=== PATIENT | male | born 1945 | race Caucasian/White ===

== ENCOUNTER 2017-02-14 06:09 | Inpatient (IN) ==
[2017-02-14] MEDS ORDERED: Heparin 1,000 UNITS/500 mL NS 2,000 ML ONE (06:33)
[2017-02-14] MEDS ORDERED: *HR* Propofol 200 MG/20 ML VIAL IVP ONE (06:37)
[2017-02-14] MEDS ORDERED: Lidocaine -MPF 4% 5 ML AMPUL ONE (06:42)
[2017-02-14] MEDS ORDERED: *HR* Succinylcholine 200 MG/10 ML VIAL IVP ONE (06:42)
[2017-02-14] MEDS ORDERED: *HR* Rocuronium Bromide 50 MG/5 ML VIAL ONE (06:42)
[2017-02-14] MEDS ORDERED: *HR* FentaNYL (PF) 100 MCG/2 ML VIAL ONE (06:43)
[2017-02-14] MEDS ORDERED: *HR* Phenylephrine 10 MG/ML VIAL ONE ×3 (06:44→15:26)
[2017-02-14] MEDS ORDERED: Lidocaine -MPF 1% 2 ML VIAL ID ONE (06:45)
[2017-02-14] MEDS ORDERED: Albuterol 2.5 MG/3 ML NEBULIZER IH ONE (06:45)
[2017-02-14] MEDS ORDERED: Ringers Solution, Lactated 1,000 ML IVC SCH ×2 (06:45→19:00)
[2017-02-14] MEDS ORDERED: CeFAZolin Pre 2,000 MG/100 ML 2,000 MG/100 ML BAG IVPB ONE (06:45)
[2017-02-14] MEDS ORDERED: Water for inj. (sterile) 10 ML IV ONE (06:46)
[2017-02-14] MEDS ORDERED: *HR* Heparin 5,000 UNIT/ML VIAL ONE (06:46)
[2017-02-14] MEDS ORDERED: Albuterol 2.5 MG/3 ML NEBULIZER ONE (06:47)
--- NOTE | 2017-02-14 07:18 | Anesthesia Evaluation PreOp ---
Date of Encounter: 02/14/17 Time of Encounter: 07:15 - Past History Planned Operation: Left Popliteal Angioplasty, Possible Fem- Pop Bypass Cardiac History: MO (2012), Angina (Stable), HTN, Hyperlipidemia, Cardiac Surgery (CABG X 2 2012), Cardiac Stent (2012), Other (AAA Endo graft repair, then Aneurysectomy ) Pulmonary History: Smoker, COPD (Home oxygen at night) PROJECT ARCHITECT History: Denies Any Significant HX Other Medical History: Renal (CKD Stage 3), Diabetes Type II Anesthesia History: No Prior Anesthetic Complications Alcohol Use: none Drug use: none Medications and Allergies Albuterol Sulfate [Albuterol Inhaler] 2 puff IH Q4HR PRN 06/23/15 [History] Aspirin 81 mg PO DAILY 06/23/15 [History] Prasugrel [Effient] 10 mg PO DAILY 06/23/15 [History] Cholecalciferol (D-3) [Vitamin D] 2,000 unit PO DAILY 11/01/16 [History] Furosemide [Lasix] 40 mg PO DAILY 11/01/16 [History] Gabapentin [Neurontin] 800 mg PO QID 11/01/16 [History] GlipiZIDE XL (24 HR) [Glucotrol XL] 2.5 mg PO BID 11/01/16 [History] Isosorbide MONOnitrate [Isosorbide Mononitrate ER] 120 mg PO DAILY 11/01/16 [ History] Metoprolol XL (24 HR) Succ [Toprol Xl] 50 mg PO HS 11/01/16 [History] Nitroglycerin [Nitrolingual] 1 spr TL AD PRN 11/01/16 [History] Valsartan [Diovan] 160 mg PO DAILY 11/01/16 [History] Acetaminophen [Tylenol] 1,000 mg PO Q6HR PRN 02/14/17 [History] Amitriptyline [Elavil] 25 mg PO HS 02/14/17 [History] Calcium Polycarbophil [Fibercon] 625 mg PO QID 02/14/17 [History] Hydrocortisone 1% CREAM [Cortaid] 1 appl TP BID PRN 02/14/17 [History] Hydroxyzine HCl 25 mg PO TID PRN 02/14/17 [History] Mineral Oil/Hydrophil Petrolat [Aquaphor Ointment] 1 appl TP BID 02/14/17 [ History] Na Phos,M-B/Na Phos,Di-Ba [Fleet Enema Extra] 230 ml RC PRN PRN 02/14/17 [ History] Oxycodone HCl/Acetaminophen [Percocet 5-325 mg Tablet] 1 tab PO Q6H PRN [History] Allergies clopidogrel [From Plavix] Allergy (Mild, Verified 11/01/16 12:37) Rash Eykzvaf-Qzx-Oeg Reductase Inhibitor [Statins] Allergy (Mild, Verified 11/01/16 12:37) Hives zinc Allergy (Mild, Verified 11/01/16 12:37) Hives - Meds/Allergy Pre-op Review Medications Reviewed: Yes Allergies Reviewed: Yes Beta Blockers on Current Med List: Yes (Took Metoprolol last night 2300) Anesthesia Results - Labs Laboratory Tests 02/08/17 02/08/17 02/08/17 10:39 10:39 10:39 Hgb 15.3 Hct 45.6 Plt Count 147 PT 11.3 INR 1.0 APTT 31.5 Sodium 136 Potassium 4.5 BUN 22 Creatinine 1.45 H - Imaging EKG: report reviewed (SR First Degree AV Block) Anesthesia Exam O2 Sat Height 1.78 m Height 1.78 m Height 1.78 m Weight 97.976 kg Weight 97.976 kg Weight 97.976 kg O2 Sat by Pulse Oximetry 98 O2 Sat by Pulse Oximetry 98 Vital Signs Temp Pulse Resp BP Pulse Ox 98.4 F 75 18 121/68 98 02/14/17 06:29 02/14/17 06:29 02/14/17 06:29 02/14/17 06:29 02/14/17 06:29 Height: 5'10 Weight: 216 lbs NPO (# of Hours): MN Pain Scale: 0 - HEENT Pupil (Motor): Pupils equal, EOMI Mallampati: II Teeth: Normal Oral Opening: Greater than 3 - PROJECT ARCHITECT LOC: Oriented PROJECT ARCHITECT Motor: Normal RUE, Normal LUE, Normal RLE, Normal LLE, Normal Face PROJECT ARCHITECT Sensory: Normal: RUE, LUE, RLE, LLE, Face - Cardiac Rhythm: Regular Murmur: None JVD: No Carotid Bruit: No - Pulmonary Breath Sounds: bilateral Clear Respiratory Effort: Symmetrical Anesthesia Assess/Plan ASA Score: 3 (CAD COPD PVD DM) Modified Sylvia Scale for Level of Consciousness: Cooperative, oriented, and tranquil Anesthetic Plan: General Monitoring Plan: Standard Monitors, A-Line Recovery Plan: PACU (Discussed GA, possible A-line, agrees to proceed)
--- NOTE | 2017-02-14 07:30 | History & Physical Report ---
Date of Encounter: 02/14/17 Time of Encounter: 07:15 24 Hour HP Update - Instructions Instructions: If the History and Physical is less than 30 days old and was completed prior to A.M. admission and or procedure and has NOT been updated on calendar day of procedure please complete this update prior to performing procedure. - Update Patient reports changes in Medical Condition: No Changes in assessment/condition: No Changes in Medication: No Preop tests/diagnostics Reviewed: Yes Surgery Remains Indicated: Yes Consent for Planned Operative Procedure(s) Verified: Yes - Pre-Operative Checklist Preoperative Checklist Indicated: Yes Prophylactic Antibiotic Ordered: Yes Home Medications Include Beta Cheryl: Yes Beta Cheryl Taken Today (Day of Surgery): Yes Beta Cheryl Taken Yesterday (Day Prior to Surgery): Yes Is VTE Prophylaxis Indicated?: Yes
[2017-02-14] MEDS ORDERED: *HR* Midazolam HCl 2 MG/2 ML VIAL ONE (07:47)
[2017-02-14] MEDS ORDERED: Ketamine *HR* 500 MG/10 ML MDV ONE (08:46)
[2017-02-14] MEDS ORDERED: EPHEDrine 50 MG/ML VIAL ONE ×2 (08:51→09:54)
[2017-02-14] MEDS ORDERED: *HR* Magnesium Sulfate 1 GM/2 ML VIAL ONE (08:52)
[2017-02-14] MEDS ORDERED: Ondansetron 4 MG/2 ML VIAL ONE (10:07)
[2017-02-14] MEDS ORDERED: Acetaminophen IV 1,000 MG/100 ML INFUS..BTL ONE (11:38)
[2017-02-14] MEDS ORDERED: Heparin 1,000 UNITS/500 mL NS 500 ML ONE (12:16)
[2017-02-14] MEDS ORDERED: *HR* Promethazine 25 MG/ML VIAL IVP PRN (14:26)
[2017-02-14] MEDS ORDERED: *HR* HYDROmorphone (PF) 1 MG/ML SYRINGE IVP PRN (14:26)
[2017-02-14] MEDS ORDERED: *HR* Labetalol 100 MG/20 ML MDV IVP PRN (14:26)
[2017-02-14] MEDS ORDERED: *HR* HYDROmorphone 2 MG/ML SYRINGE ONE (14:50)
--- NOTE | 2017-02-14 14:56 | Operative Note ---
Date of procedure: 02/14/17 Pre-op diagnosis: PAD/leg pain Post-op diagnosis: same Procedure: left leg angiogram via antegrade approach and open femoral exposure left SFA balloon angioplasty with 5 and 6 mm balloons with radiologic interpretation and supervision left TibioPeroneal trunk and selective tibial endarterectomy of the proximal peroneal and posterior tibial arteries left common femoral to tibioperoneal bypass with 6 mm PTFE distaflo graft Complications: none Anesthesia: GETA Surgeon: Bertrand Miller Estimated blood loss (cc): 600 Urine output (cc): 900 Specimen: none Condition: stable Disposition: PACU Procedure in Detail: History Derrick Grvaes is a 71-year-old white male with a very long and complicated medical history. I performed an endovascular repair of an abdominal aortic aneurysm in 2014. As part of his follow-up the patient had noted significant bilateral lower extremity pain. A CT angiogram was obtained in the fall of 2015 with intention to treat in the operating room. The CT scan however revealed a new diagnosis of bladder cancer and the patient was referred to urology for treatment. He was then referred back to vascular surgery for intervention and he now comes for that procedure for the left lower extremity. Due to the presence of the endovascular stent graft he was not a candidate for a percutaneous contralateral approach as would standardly be done in this circumstance. Past history also includes coronary artery disease and open heart bypass grafting and stent angioplasty and diabetes and hyperlipidemia and COPD. Procedure After informed consent was obtained the patient was taken to the operating room. General endotracheal anesthesia was established and an arterial line was placed. The left neck and abdomen and right groin were sterilely prepped and draped. A timeout protocol was observed. The left groin was then explored and opened via the original left groin incision from his endovascular stent graft repair. Dissection to the femoral area revealed a calcific left common femoral artery with a soft superficial femoral artery. Controls obtained of the femoral vessels. An 18-gauge needle was then used to puncture the anterior surface of the common femoral artery in an area of soft tissue. This was followed by a wire and a 6 Tamazight sheath and dilator. The dilator was removed and the sheath was aspirated and flushed. An angiogram was then performed of the left lower extremity. Contrast was injected via the sheath of the left lower extremity. This demonstrated the area of stenosis in the distal left thigh by his previous CT angiogram had now become thrombosed. There was an isolated area of the above- knee popliteal that reconstituted and then the Armin and below the knee popliteal artery were occluded. I decision at that point was made to proceed with endovascular intervention. 5000 units of heparin were administered intravenously. After an appropriate delay the guidewire was inserted through the left superficial femoral artery obstruction in the area of chronic total occlusion. With this done a 5 and 6 mm diameter balloon was inserted into this area and inflated. Completion angiograms demonstrated a successful result with resolution of all of the left superficial femoral artery HAND BUFFING WHEEL FORMER. Attention was then directed to the left popliteal artery HAND BUFFING WHEEL FORMER here multiple attempts of placing a wire through this occlusion were unsuccessful. Therefore further endovascular attempts were aborted and the patient would thus need direct open reconstruction to relieve this occlusive lesion. By CT angiogram the patient was also identified as having significant distal disease. The left above-knee popliteal artery was then exposed through a medial incision. Dissection was carried down to the neurovascular bundle. The gastrocnemius muscle appeared edematous. The artery was in a abnormally lateral location which made the exposure and dissection and surgery in this vessel extremely difficult and tedious. In addition there were a number of crossing veins that needed to be divided. Evaluation of the artery revealed a dense and thick plaque that extended from the below the knee popliteal artery into the tibial peroneal trunk and into the proximal tibial vessels. After selective control was obtained of the tibial vessels and the popliteal and arteriotomy was made over the tibial peroneal trunk. This vessel was occluded and therefore an endarterectomy was necessary. A formal endarterectomy was performed of the left tibial peroneal trunk. This was performed using standard techniques. Dissection was carried into the proximal aspect of the posterior tibial and peroneal arteries. Dense and calcified plaque were removed from these vessels and retrograde bleeding was achieved. With this done a subsartorial tunnel was created from knee area to the groin. A 6 mm PTFE Distaflo graft was selected. This graft was then anastomosed to the area of the endarterectomized tibial peroneal trunk. After the distal anastomosis was completed except for leaving a small space open for flushing attention was directed to the proximal area. An arteriotomy was then made in the left common femoral artery with extension onto the proximal aspect of the superficial femoral artery. The plaque was posteriorly and did not require endarterectomy. The synthetic graft was then cut to size and an endograft to side of artery anastomosis was performed using 6 -0 Prolene. After appropriate backbleeding and flushing the proximal anastomosis was opened. Then attention was directed distally and the graft was allowed to flush through the open area and then the final few sutures placed and pulsatile flow was then restored into the tibial circulation. The patient had significant oozing thought secondary to his use of antiplatelet agents surrounding the time of surgery which could not effectively be stopped due to his ongoing coronary artery disease. After a long and tedious effort hemostasis was achieved at both areas of anastomoses due to the bruising from the needle puncture sites. A number of topical agents were used to assist in control of this oozing. With this done the wounds were irrigated with antibiotic containing solution. The wounds were closed in layers using absorbable suture. Dry sterile dressings were applied. Doppler signals were identified over the anterior tibial and posterior tibial arteries at the ankle. The patient was then taken from the operating room to the recovery room in stable condition. He was extubated. Aspirin blood loss was 600 mL. The sponge count and needle counts were correct.
[2017-02-14] MEDS ORDERED: hydrOXYzine pamoate 25 MG CAPSULE PO PRN (17:37)
[2017-02-14] MEDS ORDERED: ceFAZolin 2,000 MG in D5% in Water 100 ML IVPB SCH (17:37)
[2017-02-14] MEDS ORDERED: NA PHOS M B RC PRN (17:37)
[2017-02-14] MEDS ORDERED: Nitroglycerin Spray 4.9 GM BOTTLE TL PRN (17:37)
[2017-02-14] MEDS ORDERED: Ondansetron 4 MG/2 ML VIAL IVP PRN (17:37)
[2017-02-14] MEDS ORDERED: *HR* OxyCODONE/APAP 5/325 TABLET PO PRN (17:37)
[2017-02-14] MEDS ORDERED: *HR* Morphine 2 MG/ML SYRINGE IVP PRN ×2 (17:37)
[2017-02-14] MEDS ORDERED: NA PHOS DI BA RC PRN (17:37)
[2017-02-14] MEDS ORDERED: Naloxone 0.4 MG/ML INJ IVP PRN (17:37)
[2017-02-14] MEDS ORDERED: 0.9 % Sodium Chloride 500 ML ONE (17:54)
[2017-02-14] MEDS ORDERED: 0.9 % Sodium Chloride 250 ML IVC ONE ×2 (17:57→18:15)
[2017-02-14 18:10] LABS: Hematocrit 29.8 % (37.5-50.1)
[2017-02-14] MEDS: Gabapentin 400 MG CAPSULE PO SCH ×2 (19:05→20:17)
[2017-02-14] MEDS: Metoprolol XL (24 HR) Succ 50 MG TAB.ER.24H PO SCH (20:17)
[2017-02-14] MEDS: MINERAL OIL TP SCH (20:18)
[2017-02-14] MEDS: HYDROPHIL PETROLAT TP SCH (20:18)
[2017-02-14] MEDS: *HR* GlipiZIDE XL (24 HR) 2.5 MG TABLET PO SCH (21:04)
[2017-02-15] MEDS: ceFAZolin 2,000 MG in D5% in Water 100 ML IVPB SCH ×2 (03:15→08:58)
[2017-02-15 04:57] LABS: Basophils # 0.1 K/mcL (0.0-0.2); Basophils % 0.5 %; Eosinophils # 0.3 K/mcL (0.0-0.6); Eosinophils % 2.8 %; Hematocrit 28.6 % (37.5-50.1); Hemoglobin 9.5 g/dL (12.9-16.9); Immature Granulocytes % 0.3 % (0-4); Lymphocytes # 1.2 K/mcL (0.6-4.6); Lymphocytes % 12.1 %; Mean Corpuscular HGB Conc 33.2 g/dL (31.6-35.5); Mean Corpuscular Hemoglobin 32.2 pg (28.0-33.3); Mean Corpuscular Volume 96.9 fL (83.0-100.0); Mean Platelet Volume 10.9 fL (9.4-12.4); Monocytes # 0.9 K/mcL (0.0-1.3); Monocytes % 9.1 %; Neutrophils # 7.6 K/mcL (1.6-8.9); Red Blood Count 2.95 M/mcL (4.19-5.50); Red Cell Distribution Width 13.3 % (11.5-14.5); Segmented Neutrophils % 75.2 %
[2017-02-15 04:58] LABS: Platelet Count 93 K/mcL (140-400)
[2017-02-15 05:07] LABS: BUN/Creatinine Ratio 16 (6-26); Blood Urea Nitrogen 21 mg/dL (8-26); Carbon Dioxide 25 mEq/L (19-29); Chloride 106 mEq/L (98-109); Glucose 138 mg/dL (70-99); Osmolality,Calculated 283 (280-300); Potassium 4.9 mEq/L (3.5-4.5); Sodium 134 mEq/L (136-145); eGFR For African Americans > 60 (> 60); eGFR For Non-African Americans 54 (> 60)
[2017-02-15 05:41] LABS: Platelet Estimate Decreased (Normal)
[2017-02-15] MEDS: Gabapentin 400 MG CAPSULE PO SCH ×4 (08:52→19:55)
[2017-02-15] MEDS: *HR* GlipiZIDE XL (24 HR) 2.5 MG TABLET PO SCH ×2 (08:52→19:56)
[2017-02-15] MEDS: HYDROPHIL PETROLAT TP SCH ×2 (08:53→19:53)
[2017-02-15] MEDS: MINERAL OIL TP SCH ×2 (08:53→19:53)
[2017-02-15] MEDS ORDERED: Isosorbide MONOnitrate (24 HR) 60 MG TAB.ER.24H PO SCH (09:00)
[2017-02-15] MEDS ORDERED: Cholecalciferol (D-3) 1,000 UNIT TABLET PO SCH (09:00)
[2017-02-15] MEDS ORDERED: Aspirin 81 MG TAB.CHEW PO SCH (09:00)
[2017-02-15] MEDS ORDERED: Furosemide 40 MG TABLET PO SCH (09:00)
[2017-02-15] MEDS ORDERED: Valsartan 160 MG TABLET PO SCH (09:00)
--- NOTE | 2017-02-15 17:05 | Vascular/[facility] Progress Note ---
Date of Encounter: 02/14/17 Time of Encounter: 17:02 - Assessment and plan (1) PAD (peripheral artery disease) Current Visit: Yes Status: Chronic Patient is postoperative day #1 from an extensive left lower extremity reconstruction with angiogram and SFA angioplasty and endarterectomy and femoral to tibioperoneal trunk bypass graft with synthetic. The bypass graft remains patent with excellent perfusion of the left foot. The patient has edema of the left calf and foot which is expected after reconstruction and the need for division of some of the veins for arterial exposure. The patient has walked some in the hallways but he still has some difficulties. He was seen by physical therapy in consultation today. He also has had episodes of borderline low O2 saturation despite nasal cannula O2 supplementation. - Subjective Interval history: Complains of pain and stiffness of left lower extremity with ambulation Vital Signs, Last 4 Hours Temp Pulse Resp BP Pulse Ox 02/15/17 16:00 98.2 F 74 16 111/48 93 L 02/15/17 14:00 68 14 95/54 97 - Physical Examination General: Present: Conversant, No Apparent Distress HEENT: Present: Atraumatic Neck: Absent: JVD Cardiac: Present: Reg Rate and Rhythm, Normal S1 and S2 Lungs: Present: Decreased breath sounds Neuro: Present: Alert and responsive, No focal deficits noted Vascular: Present: Normal capillary refill, Color/Temperature (Left foot is warm and pink. The patient has Doppler signals 3.) - VTE Documentation of Mechanical Device: Intermittent pneumatic compression device Results 02/15/17 04:07 02/15/17 04:07 Lab Results, Last 24 hours 02/14/17 02/15/17 02/15/17 18:00 04:07 04:07 WBC 10.1 Hgb 10.0 L D 9.5 L Hct 29.8 L 28.6 L Plt Count 93 L Sodium 134 L Potassium 4.9 H Chloride 106 Carbon Dioxide 25 BUN 21 Creatinine 1.31 H Glucose 138 H Calcium 8.0 L Consult Discharge Plan - Plan Referrals: Lisha Crenshaw RISK MANAGEMENT INTERN [Primary Care Provider] -
[2017-02-15] MEDS: Metoprolol XL (24 HR) Succ 50 MG TAB.ER.24H PO SCH (19:56)
[2017-02-15] MEDS ORDERED: Ondansetron 4 MG/2 ML VIAL IVP PRN (21:03)
[2017-02-15] MEDS ORDERED: *HR* OxyCODONE/APAP 5/325 TABLET PO PRN (21:03)
[2017-02-15] MEDS ORDERED: [UNRECOGNIZED DRUG - OTHER] RC PRN (21:03)
[2017-02-15] MEDS ORDERED: hydrOXYzine pamoate 25 MG CAPSULE PO PRN (21:03)
[2017-02-15] MEDS ORDERED: Naloxone 0.4 MG/ML INJ IVP PRN (21:03)
[2017-02-15] MEDS ORDERED: Nitroglycerin Spray 4.9 GM BOTTLE TL PRN (21:03)
[2017-02-15] MEDS ORDERED: *HR* Morphine 2 MG/ML SYRINGE IVP PRN ×2 (21:03)
[2017-02-16] MEDS: Gabapentin 400 MG CAPSULE PO SCH ×2 (08:32→12:22)
[2017-02-16] MEDS ORDERED: *HR* GlipiZIDE XL (24 HR) 2.5 MG TABLET PO SCH (09:00)
[2017-02-16] MEDS ORDERED: Isosorbide MONOnitrate (24 HR) 60 MG TAB.ER.24H PO SCH (09:00)
[2017-02-16] MEDS ORDERED: Aspirin 81 MG TAB.CHEW PO SCH (09:00)
[2017-02-16] MEDS ORDERED: Furosemide 40 MG TABLET PO SCH (09:00)
[2017-02-16] MEDS ORDERED: Cholecalciferol (D-3) 1,000 UNIT TABLET PO SCH (09:00)
[2017-02-16] MEDS ORDERED: Valsartan 160 MG TABLET PO SCH (09:00)
[2017-02-16 11:47] VITALS: BP 96/51
--- NOTE | 2017-02-16 14:46 | Discharge Summary ---
Date of Encounter: 02/14/17 Time of Encounter: 14:44 - Discharge Diagnosis (1) PAD (peripheral artery disease) Priority: Primary Status: Chronic Comments: Patient with severe bilateral lower extremity occlusive disease. Patient underwent successful revascularization for left lower extremity. He will return in the future for her revascularization of the right lower extremity. - Discharge Medications Home Medications: Albuterol Sulfate [Albuterol Inhaler] 2 puff IH Q4HR PRN 06/23/15 [History] Aspirin 81 mg PO DAILY 06/23/15 [History] Prasugrel [Effient] 10 mg PO DAILY 06/23/15 [History] Cholecalciferol (D-3) [Vitamin D] 2,000 unit PO DAILY 11/01/16 [History] Furosemide [Lasix] 40 mg PO DAILY 11/01/16 [History] Gabapentin [Neurontin] 800 mg PO QID 11/01/16 [History] GlipiZIDE XL (24 HR) [Glucotrol XL] 2.5 mg PO BID 11/01/16 [History] Isosorbide MONOnitrate [Isosorbide Mononitrate ER] 120 mg PO DAILY 11/01/16 [ History] Metoprolol XL (24 HR) Succ [Toprol Xl] 50 mg PO HS 11/01/16 [History] Nitroglycerin [Nitrolingual] 1 spr TL AD PRN 11/01/16 [History] Valsartan [Diovan] 160 mg PO DAILY 11/01/16 [History] Acetaminophen [Tylenol] 1,000 mg PO Q6HR PRN 02/14/17 [History] Amitriptyline [Elavil] 25 mg PO HS 02/14/17 [History] Calcium Polycarbophil [Fibercon] 625 mg PO QID 02/14/17 [History] Hydrocortisone 1% CREAM [Cortaid] 1 appl TP BID PRN 02/14/17 [History] Hydroxyzine HCl 25 mg PO TID PRN 02/14/17 [History] Mineral Oil/Hydrophil Petrolat [Aquaphor Ointment] 1 appl TP BID 02/14/17 [ History] Na Phos,M-B/Na Phos,Di-Ba [Fleet Enema Extra] 230 ml RC PRN PRN 02/14/17 [ History] Oxycodone HCl/Acetaminophen [Percocet 5-325 mg Tablet] 1 tab PO Q6H PRN [History] Allergies/Adverse Reactions: Allergies clopidogrel [From Plavix] Allergy (Mild, Verified 11/01/16 12:37) Rash Jofaqnc-Lns-Ijl Reductase Inhibitor [Statins] Allergy (Mild, Verified 11/01/16 12:37) Hives zinc Allergy (Mild, Verified 11/01/16 12:37) Hives Date of admission: 02/14/17 17:25 Primary care physician: Lisha Crenshaw CNP Consults: 02/15/17 07:50 Consult to Physical Therapy [CONS] Routine Comment: Evaluate, develop and implement POC Procedure(s) Performed: Left lower extremity angiogram, left superficial femoral artery balloon angioplasty, left tibial peroneal trunk endarterectomy, and left femoral to tibioperoneal trunk bypass graft with PTFE. Discharging clinician: Bertrand Miller Anticipated date of discharge: 02/16/17 - Patient Status Disposition: Home Health Service Condition: Good Functional capacity at discharge: uses cane/walker Overall status at discharge: patient is progressing back to baseline - Discharge Instructions Follow Up With: Lisha Crenshaw CNP [Primary Care Provider] - (patient might be going to [facility]) Bertrand Miller MD [Partnered Physician] - 03/01/17 2:45 pm Additional Instructions: Patient is to ambulate a minimum of 20 minutes twice a day and per physical therapy. Patient is to resume usual home medications. Patient is a keep the incisions dry for total 5 days following surgery. Patient is not to drive an automobile for 2 weeks. Patient is to use a walker at home to assist him to prevent falls. Patient is to wear oxygen 2 L per nasal cannula when ambulating. - Diet and Activity Activity: as per physical therapy Diet: advance to your usual diet - Hospital Course Hospital course: Mr. Graves is a 71 year old male Wonder what extensive revascularization of the left lower extremity. The patient needed assisted time or extra time for rehabilitation for ambulation. Therefore he stayed next day and had a physical therapy consultation. Patient was felt fit for discharge on postoperative day #2. His diet and exercise and medications were reviewed as well as wound care prior to discharge. - Time Spent with Patient Total time spent providing and/or coordinating discharge services: Exam Vital Signs, Last 4 Hours Temp Pulse Resp BP Pulse Ox 02/16/17 11:44 98.4 F 72 18 96/51 100 General: Present: Conversant, No Apparent Distress HEENT: Present: Atraumatic, Normocephaly Cardiac: Present: Reg Rate and Rhythm, Normal S1 and S2 Lungs: Present: Decreased breath sounds Neuro: Present: Alert and responsive, No focal deficits noted Abdomen: Present: Soft, Non-tender Vascular: Present: Pulse, absent (Patient is multiphasic Doppler signals at the left ankle and in the left foot.), Edema, Color/Temperature (Color and temperature of the left lower extremity are normal.), Surgical incisions ( Incisions are clean and dry and without signs of hematoma or cellulitis.). Absent: Cyanosis Skin: Present: No rashes noted on visualized skin Musculoskeletal: Present: No Chest Wall Tenderness - VTE Documentation of Mechanical Device: Intermittent pneumatic compression device
--- NOTE | 2017-02-16 14:53 | Physician Discharge Referral ---
Home Health/Hosp Referral Info Transfer to: Home Health (Patient for physical therapy as an outpatient as per physical therapy recommendations as an inpatient.) Provider in Charge Post Discharge: PCP - Diagnosis (1) PAD (peripheral artery disease) Status: Chronic - Respiratory Orders Smoking Cessation: Smoking cessation has been advised. For more information, call the [place] Tobacco Quit Line at 8-662-FXSQ-NOW. - Transfer Medications Home Medications: Albuterol Sulfate [Albuterol Inhaler] 2 puff IH Q4HR PRN 06/23/15 [History] Aspirin 81 mg PO DAILY 06/23/15 [History] Prasugrel [Effient] 10 mg PO DAILY 06/23/15 [History] Cholecalciferol (D-3) [Vitamin D] 2,000 unit PO DAILY 11/01/16 [History] Furosemide [Lasix] 40 mg PO DAILY 11/01/16 [History] Gabapentin [Neurontin] 800 mg PO QID 11/01/16 [History] GlipiZIDE XL (24 HR) [Glucotrol XL] 2.5 mg PO BID 11/01/16 [History] Isosorbide MONOnitrate [Isosorbide Mononitrate ER] 120 mg PO DAILY 11/01/16 [ History] Metoprolol XL (24 HR) Succ [Toprol Xl] 50 mg PO HS 11/01/16 [History] Nitroglycerin [Nitrolingual] 1 spr TL AD PRN 11/01/16 [History] Valsartan [Diovan] 160 mg PO DAILY 11/01/16 [History] Acetaminophen [Tylenol] 1,000 mg PO Q6HR PRN 02/14/17 [History] Amitriptyline [Elavil] 25 mg PO HS 02/14/17 [History] Calcium Polycarbophil [Fibercon] 625 mg PO QID 02/14/17 [History] Hydrocortisone 1% CREAM [Cortaid] 1 appl TP BID PRN 02/14/17 [History] Hydroxyzine HCl 25 mg PO TID PRN 02/14/17 [History] Mineral Oil/Hydrophil Petrolat [Aquaphor Ointment] 1 appl TP BID 02/14/17 [ History] Na Phos,M-B/Na Phos,Di-Ba [Fleet Enema Extra] 230 ml RC PRN PRN 02/14/17 [ History] Oxycodone HCl/Acetaminophen [Percocet 5-325 mg Tablet] 1 tab PO Q6H PRN [History] Allergies/Adverse Reactions: Allergies clopidogrel [From Plavix] Allergy (Mild, Verified 11/01/16 12:37) Rash Mpkcnab-Dkn-Jlh Reductase Inhibitor [Statins] Allergy (Mild, Verified 11/01/16 12:37) Hives zinc Allergy (Mild, Verified 11/01/16 12:37) Hives Certification: Further, I certify that my clinical findings support that this patient is homebound (i.e. absences from home require considerable and taxing effort and are for medical reasons or worship services or infrequently or short duration when for other reasons) because: Homebound Reason: Patient requires assistance of a person or device to safely leave home, Post-surgery restriction and or conditions limit ability to leave home, Leaving home requires considerable and taxing effort due to condition, Severity of cardiac or pulmonary status limits activity tolerance Attestation: My signature below is to certify that this patient is under my care and that I, or nurse practitioner, or a physician's metallurgical laboratory assistant working with me, has a face-to -face encounter with this patient.
[2017-02-16] MEDS ORDERED: Metoprolol XL (24 HR) Succ 50 MG TAB.ER.24H PO SCH (21:00)
== END 2017-02-16 16:05 | disposition home health service (06) | DRG 253 ==
LOC: SAMDAY 06:09 → ICNU 17:25 → 2NNU 02-15 20:48
PROVIDERS: ADMIT Surgery Vascular Surgery; ATTEND Surgery Vascular Surgery

== ENCOUNTER 2018-02-01 16:30 | Observation (INO) ==
[2018-02-01] MEDS ORDERED: Aspirin 81 MG TAB.CHEW PO STA (16:56)
--- NOTE | 2018-02-01 17:14 | Emergency Department Note ---
Disposition Clinical Impression: Exertional dyspnea Chest pain Qualifiers: Chest pain type: unspecified Qualified Code(s): R07.9 - Chest pain, unspecified Disposition: Admitted As Inpatient Condition: Fair Referrals: Lisha Crenshaw CNP [Primary Care Provider] - Forms: ED Satisfaction Letter General Adult HPI - General Chief complaint: ED Chest Pain Stated complaint: VIV,CP Time Seen by Provider: 02/01/18 16:46 Source: patient, family Limitations: physical limitation - History of Present Illness HPI Narrative: Constant shortness of breath with intermittent chest pain since yesterday morning. Last time he had chest pain was about 10:00 this morning, resolved with nitroglycerin. He is a fair historian, has some trouble describing his symptoms. He does describe orthopnea. Also describes dyspnea on exertion. Rest makes the chest pain and shortness of breath better, nitroglycerin glycerin makes the chest pain better. He has had a cough productive of clear sputum. He has COPD but only uses his inhalers when needed, does not bring up sputum unless he is sick. Has not had a fever. Coughing does not make the chest pain worse. He has had congestive heart failure in the past, cannot tell me whether these symptoms are similar to when he has had heart failure. I asked him if it felt similar to when his COPD is flared up, he says it is COPD he has never really flared up. No recent travel other than to [facility]. No recent trauma or surgery. No history of DVT or PE. No hemoptysis. Has a history of bladder cancer, has not been treated over a year. Pain Scale: 5 - Related Data Home Medications Medication Instructions Recorded Confirmed Albuterol Sulfate [Albuterol 2 puff IH Q4HR PRN 06/23/15 02/14/17 Inhaler] Aspirin 81 mg PO DAILY 06/23/15 02/14/17 Prasugrel [Effient] 10 mg PO DAILY 06/23/15 02/14/17 Cholecalciferol (D-3) [Vitamin D] 2,000 unit PO DAILY 11/01/16 02/14/17 Furosemide [Lasix] 40 mg PO DAILY 11/01/16 02/14/17 Gabapentin [Neurontin] 800 mg PO QID 11/01/16 02/14/17 GlipiZIDE XL (24 HR) [Glucotrol XL] 2.5 mg PO BID 11/01/16 02/14/17 Isosorbide MONOnitrate [Isosorbide 120 mg PO DAILY 11/01/16 02/14/17 Mononitrate ER] Metoprolol XL (24 HR) Succ [Toprol 50 mg PO HS 11/01/16 02/14/17 Xl] Nitroglycerin [Nitrolingual] 1 spr TL AD PRN 11/01/16 02/14/17 Valsartan [Diovan] 160 mg PO DAILY 11/01/16 02/14/17 Acetaminophen [Tylenol] 1,000 mg PO Q6HR PRN 02/14/17 02/14/17 Amitriptyline [Elavil] 25 mg PO HS 02/14/17 02/14/17 Calcium Polycarbophil [Fibercon] 625 mg PO QID 02/14/17 02/14/17 Hydrocortisone 1% CREAM [Cortaid] 1 appl TP BID PRN 02/14/17 02/14/17 Mineral Oil/Hydrophil Petrolat 1 appl TP BID 02/14/17 02/14/17 [Aquaphor Ointment] Na Phos,M-B/Na Phos,Di-Ba [Fleet 230 ml RC PRN PRN 02/14/17 02/14/17 Enema Extra] Oxycodone HCl/Acetaminophen 1 tab PO Q6H PRN 02/14/17 02/14/17 [Percocet 5-325 mg Tablet] hydrOXYzine HCl [Hydroxyzine HCl] 25 mg PO TID PRN 02/14/17 02/14/17 Previous Rx's Medication Instructions Recorded Benzonatate [Tessalon] 200 mg PO TID PRN #30 capsule 06/18/17 GuaiFENesin ER [Mucinex] 1,200 mg PO BID #20 tbbp.12hr 06/18/17 cephALEXin [Keflex] 500 mg PO QID #40 capsule 06/18/17 predniSONE [PredniSONE] 60 mg PO DAILY 5 Days tablet 06/18/17 Betamethasone Dipropionate 15 gm TP BID PRN #1 cream..g. 07/10/17 Clotrimazole 1% CRM [Lotrimin 1%] 1 appl TP BID #1 tube 07/10/17 cephALEXin [Keflex] 500 mg PO QID 5 Days capsule 07/10/17 predniSONE [PredniSONE] 20 mg PO BID #10 tablet 10/25/17 Metaxalone [Skelaxin] 800 mg PO TID #15 tablet 10/26/17 Allergies Allergy/AdvReac Type Severity Reaction Status Date / Time clopidogrel [From Plavix] Allergy Mild Rash Verified 02/01/18 16:42 Ikkexyv-Mlo-Bkl Reductase Allergy Mild Hives Verified 02/01/18 16:42 Inhibitor [Statins] zinc Allergy Mild Hives Verified 02/01/18 16:42 pregabalin [From Lyrica] Allergy Hives Verified 02/01/18 16:42 All systems ED: reviewed and negative except as stated. Past Medical History - Past Medical History Medical history: Reports: cancer, COPD, coronary artery disease, diabetes, hypertension, renal disease Surgical history: Reports: angioplasty/stent, coronary bypass (CABG), LE stent(s ) Psychiatric history: Reports: depression - Social History Smoking Status: Current every day smoker Smokeless Tobacco Status: No Alcohol use: Reports: none Drug use: Reports: none Physical Exam Vital signs noted please see nurse's notes. Gen.: Well-developed, well-nourished patient lying in bed who appears nontoxic. Head: Atraumatic, normocephalic. Eyes: Sclerae anicteric. ENT: Mucous membranes moist. Neck: No JVD. Mild hepatojugular reflux. Heart: Regular rate and rhythm without appreciable murmur. Lungs: Normal respiratory pattern without respiratory distress, lungs clear to auscultation bilaterally. No appreciable rales, rhonchi or wheezing. Abdomen: Soft, nontender, nondistended, no guarding or peritoneal signs. Skin: Warm and dry without rash. Neurologic: Awake, alert with normal speech and mental status. Cranial nerves grossly intact. No focal deficits or lateralizing signs. Psychiatric: Normal mood and affect. Musculoskeletal: Trace peripheral edema. The right lower extremity is slightly larger than the left, he says this is his baseline since the graft was taken from that leg for his bypass. No signs of trauma or DVT. - General Limitations: physical limitation General appearance: alert, in no apparent distress Course Vital Signs Temperature 98.4 F 02/01/18 16:42 Pulse Rate 76 02/01/18 16:42 Respiratory Rate 16 02/01/18 16:42 Blood Pressure 111/64 02/01/18 16:42 O2 Sat by Pulse Oximetry 99 02/01/18 16:42 Temperature 98.4 F 02/01/18 16:42 Pulse Rate 72 02/01/18 19:31 Respiratory Rate 18 02/01/18 19:31 Blood Pressure 144/85 02/01/18 19:31 O2 Sat by Pulse Oximetry 98 02/01/18 19:31 Oxygen Delivery Oxygen Delivery Room Air Procedures - Ultrasound-Other Narrative: Emergency bedside echocardiography: Images obtained by me, interpreted by me. There is quality was poor. I was unable to get adequate windows to assess for left ventricular function or focal right heart strain. I was able to get a volume assessment. Intrahepatic IVC was measured at 1.5 cm, minimal compression with sniffing. Nondiagnostic limited echo. Medical Decision Making - Lab Data Result diagrams: 02/01/18 17:10 02/01/18 17:10 Lab Results 02/01/18 02/01/18 02/01/18 Range/Units 17:10 17:10 17:44 Hgb 15.4 (12.9-16.9) g/dL Sodium 133 L (136-145) mEq/L Potassium 4.2 (3.5-5.1) mEq/L Chloride 99 (98-107) mEq/L Carbon Dioxide 25 (23-29) mEq/L BUN 26 H (8-23) mg/dL Creatinine 1.39 H (0.70-1.30) mg/dL Est GFR ( Amer) > 60 (> 60) Est GFR (Non-Af Amer) 51 L (> 60) BUN/Creatinine Ratio 19 (6-26) Glucose 183 H (70-105) mg/dL Calculated Osmolality 285 (280-300) Calcium 10.3 (8.6-10.3) mg/dL Troponin I < 0.03 (< 0.04) ng/mL B-Natriuretic Peptide 94 (Less than 100) pg/mL - EKG Data EKG #1 EKG attestation: Yes I reviewed and interpreted this EKG. EKG shows normal: sinus rhythm (Rate 75, normal intervals and QRS duration. There are nonspecific T-wave inversions in leads 1, aVL and V6 that are old compared to prior tracing. There are findings suggestive of an old anterior MS that are also low compared to previous tracing. There are no acute ischemic changes. There is no evidence of right heart strain.)
[2018-02-01 17:44] LABS: BUN/Creatinine Ratio 19 (6-26); Blood Urea Nitrogen 26 mg/dL (8-23); Calcium 10.3 mg/dL (8.6-10.3); Carbon Dioxide 25 mEq/L (23-29); Chloride 99 mEq/L (98-107); Glucose 183 mg/dL (70-105); Osmolality,Calculated 285 (280-300); Potassium 4.2 mEq/L (3.5-5.1); Sodium 133 mEq/L (136-145); eGFR For African Americans > 60 (> 60); eGFR For Non-African Americans 51 (> 60)
[2018-02-01 17:45] LABS: Troponin I < 0.03 ng/mL (< 0.04)
[2018-02-01] MEDS ORDERED: *HR* LORazepam 1 MG TABLET PO ONE (20:11)
[2018-02-01] MEDS ORDERED: Naloxone 0.4 MG/ML INJ IVP PRN (22:08)
[2018-02-01] MEDS ORDERED: Acetaminophen 325 MG TABLET PO PRN (22:08)
[2018-02-01] MEDS ORDERED: Ipratropium/Albuterol Neb 3 ML IH PRN (22:11)
[2018-02-01] MEDS ORDERED: *HR* Dextrose 50 % in Water (Syg) 50 ML SYRINGE IVP PRN (22:15)
[2018-02-01] MEDS ORDERED: D5% in Water 1,000 ML IVC PRN (22:15)
[2018-02-01] MEDS ORDERED: Dextrose Gel 15 GM/37.5 ML TUBE PO PRN ×2 (22:15)
[2018-02-01] MEDS ORDERED: hydrOXYzine pamoate 25 MG CAPSULE PO PRN (22:27)
[2018-02-01] MEDS ORDERED: *HR* OxyCODONE/APAP 5/325 TABLET PO PRN (22:27)
[2018-02-01] MEDS ORDERED: Metoprolol XL (24 HR) Succ 50 MG TAB.ER.24H PO SCH (22:30)
--- NOTE | 2018-02-01 22:39 | Internal Med History&Physical ---
Date of Encounter: 02/01/18 Time of Encounter: 21:00 Assessment and Plan (1) Shortness of breath Current visit: Yes Status: Acute Patient has shortness of breath for 1 day. Has a cough with clear sputum. Has a runny nose. - Need to rule out flu. Flu antigen test placed. Result pending - We will treat patient symptomatically with DuoNeb and cough syrup - Oxygen supportive treatment (2) CAD (coronary artery disease) Current visit: Yes Status: Acute Continue home medications with antiplatelet, beta elsa. Qualifiers: Coronary Disease-Associated Artery/Lesion type: bypass graft [place] vs. transplanted heart: [place] heart Associated angina: with stable angina Qualified Code(s): I25.708 - Atherosclerosis of coronary artery bypass graft(s) , unspecified, with other forms of angina pectoris (3) COPD (chronic obstructive pulmonary disease) Current visit: Yes Status: Acute Patient has increased shortness of breath. No wheezing. Chest x-ray negative - We will place patient on DuoNeb scheduled and when necessary - We will hold steroid at this point as patient has no wheezing Qualifiers: COPD type: emphysema Emphysema type: unspecified Qualified Code(s): J43.9 - Emphysema, unspecified (4) CHF (congestive heart failure) Current visit: Yes Status: Acute Appears euvolemic at this point. We will check BNP and echocardiogram - Treatment adjustment per Echo result Qualifiers: Heart failure type: unspecified Heart failure chronicity: chronic Qualified Code(s): I50.9 - Heart failure, unspecified (5) Diabetes mellitus Current visit: Yes Status: Acute Place patient on sliding scale insulin Qualifiers: Diabetes mellitus type: type 2 Diabetes mellitus fdc insulin use: without long term care phlebotomist use Diabetes mellitus complication status: with kidney complications Diabetes mellitus complication detail: with chronic kidney disease Chronic kidney disease stage: stage 3 (moderate) Qualified Code(s): E11.22 - Type 2 diabetes mellitus with diabetic chronic kidney disease; N18.3 - Chronic kidney disease, stage 3 (moderate); N18.3 - Chronic kidney disease, stage 3 (moderate) (6) DVT prophylaxis Current visit: Yes Status: Acute Patient is ambulating and expected discharge soon. No anticoagulation placed (7) Chest pain Current visit: No Status: Resolved Patient has one episode of chest pain this morning. Patient has stable angina after CABG surgery. He is on imdur. He said the pain is similar with his angina previously. - Continuous cardiac monitoring - Track 3 sets of troponin to rule out ACS - Continue home medications Qualifiers: Chest pain type: other chest pain Qualified Code(s): R07.89 - Other chest pain; R07.8 - Other chest pain (8) PAD (peripheral artery disease) Current visit: No Status: Chronic Continue home medication aspirin and effient Internal Medicine - H&P: HPI Chief complaint: Shortness of breath Admitted From: Home Plans for Post Hospital Care: Home History of present illness: Mr. Graves is a 72 year old male with history of COPD, CHF, CAD S/P CABG, hypertension, diabetes, bladder cancer, PVD S/P bypass surgery, presented to ER for shortness of breath since yesterday, which was getting worse today. Patient has cough with clear sputum. Patient has runny nose. Per patient's fiance, patient has contacted with people with flu positive. Patient also complaining of chest pain early today, which improved after nitroglycerin use. Patient has intermittent chest pain since last February, when he got to the CABG done. He said the symptoms of chest pain today is similar to his angina usually. Patient is following up with cardiology Dr. Shelton as outpatient. Past Med Surg Social Fam HX - Past Medical History Medical history: cancer, COPD, coronary artery disease, diabetes, hypertension, renal disease Psychiatric history: depression - Past Surgical History Surgical History: angioplasty/stent, coronary bypass (CABG), LE stent(s) - Social History Smoking Status: Current every day smoker Smokeless Tobacco Status: No Alcohol use: none Drug use: none - Family History Father Family Member Ethnicity: Non- Living Status: Hx Family Cardiac Disorders: Yes (Heart attack) Internal Medicine - H&P: Meds Albuterol Sulfate [Albuterol Inhaler] 2 puff IH Q6H PRN 06/23/15 [History] Aspirin 81 mg PO DAILY 06/23/15 [History] Prasugrel [Effient] 10 mg PO DAILY 06/23/15 [History] Cholecalciferol (D-3) [Vitamin D] 4,000 unit PO DAILY 11/01/16 [History] Furosemide [Lasix] 40 - 80 mg PO DAILY PRN 11/01/16 [History] Gabapentin [Neurontin] 800 mg PO QID 11/01/16 [History] Isosorbide MONOnitrate [Isosorbide Mononitrate ER] 120 mg PO DAILY 11/01/16 [ History] Metoprolol XL (24 HR) Succ [Toprol Xl] 50 mg PO HS 11/01/16 [History] Nitroglycerin [Nitrolingual] 1 - 2 spray SL AD PRN 11/01/16 [History] Valsartan [Diovan] 160 mg PO DAILY 11/01/16 [History] Calcium Polycarbophil [Fibercon] 625 mg PO QID PRN 02/14/17 [History] Oxycodone HCl/Acetaminophen [Percocet 5-325 mg Tablet] 1 tab PO Q6H PRN [History] hydrOXYzine HCl [Hydroxyzine HCl] 25 mg PO TID PRN 02/14/17 [History] Docusate [Colace] 100 mg PO DAILY 02/01/18 [History] Methocarbamol [Robaxin] 500 mg PO QID PRN 02/01/18 [History] [place]-3/Dha/Epa/Fish Oil [Fish Oil 1,000 mg Softgel] 1,000 mg PO DAILY 02/01/18 [History] glipiZIDE [Glucotrol] 2.5 mg PO BIDWM 02/01/18 [History] 3 Allergy/AdvReac Type Severity Reaction Status Date / Time clopidogrel [From Plavix] Allergy Mild Rash Verified 02/01/18 16:42 Czxoaut-Sxo-Qmc Reductase Allergy Mild Hives Verified 02/01/18 16:42 Inhibitor [Statins] zinc Allergy Mild Hives Verified 02/01/18 16:42 gemfibrozil Allergy See Verified 02/01/18 21:59 Comments niacin Allergy See Verified 02/01/18 21:59 Comments pregabalin [From Lyrica] Allergy Hives Verified 02/01/18 16:42 All Systems PM: A 10-system review of systems was performed and is negative for pertinent findings except as documented above in the HPI. - Constitutional Vitals: Temp Pulse Resp BP Pulse Ox 98.4 F 70 18 134/79 99 02/01/18 16:42 02/01/18 21:24 02/01/18 21:24 02/01/18 21:24 02/01/18 21:24 General appearance: Present: A&O X 3, no acute distress, answers questions appropriately - Head Head exam: Present: atraumatic, normocephalic - Eye Eye exam: Present: PERRL, conjuntiva pink, sclera anicteric Pupils: Present: PERRL - Neck Neck exam general surgery: Present: supple, trachea midline. Absent: lymphadenopathy - Respiratory Respiratory exam: Present: CTAB, rhonchi (Scattered rhonchi bilaterally). Absent: accessory muscle use, rales, wheezes - Cardiovascular Cardiovascular exam: Present: RRR, +S1, +S2. Absent: diastolic murmur, gallop, rubs, systolic murmur - GI/Abdominal GI/Abdominal exam: Present: normal bowel sounds, soft, no peritoneal signs. Absent: distended, tenderness - Extremities Exam Extremities exam: Present: pedal edema (Patient has thicker Rt LE than lt, no calf tenderness.), warm, radial pulses palpable and symmetrical. Absent: calf tenderness, cyanotic - Neurological Exam Neurological exam: Present: CN II-XII intact, oriented X3, no focal deficits. Absent: pronater drift, facial droop, speech deficit - Skin Skin exam: Present: dry, intact Internal Med - H&P Results - Labs CBC & Chem 7: 02/01/18 17:10 02/01/18 17:10 Labs: Short CBC 02/01/18 Range/Units 17:10 Hgb 15.4 (12.9-16.9) g/dL BMP 02/01/18 17:10 Sodium 133 L Potassium 4.2 Chloride 99 Carbon Dioxide 25 BUN 26 H Creatinine 1.39 H Glucose 183 H Calcium 10.3 Cardiac Enzymes 02/01/18 Range/Units 17:10 Troponin I < 0.03 (< 0.04) ng/mL - EKG Data -: EKG Interpreted by Myself EKG shows normal: sinus rhythm, ST-T waves (Nonspecific ST-T changes, no significant change from previous EKG) Rate: normal - Impressions ITS Impressions Chest X-Ray 02/01/18 16:56 IMPRESSION: No radiographic evidence of acute cardiopulmonary disease. D/ / Jaspreet Stroud / Jaspreet Stroud Interpreting Provider: Jaspreet Stroud
[2018-02-01] MEDS ORDERED: Nitroglycerin 0.4 MG TAB.SUBL SL PRN (22:52)
[2018-02-02] MEDS: Gabapentin 400 MG CAPSULE PO SCH ×2 (00:39→09:17)
[2018-02-02] MEDS: Ipratropium/Albuterol Neb 3 ML IH SCH ×3 (03:56→15:47)
[2018-02-02 06:23] LABS: Basophils # 0.1 K/mcL (0.0-0.2); Basophils % 0.9 %; Eosinophils # 0.4 K/mcL (0.0-0.6); Eosinophils % 3.2 %; Hematocrit 41.1 % (37.5-50.1); Hemoglobin 14.2 g/dL (12.9-16.9); Immature Granulocytes % 0.7 % (0-4); Lymphocytes # 3.1 K/mcL (0.6-4.6); Lymphocytes % 25.8 %; Mean Corpuscular HGB Conc 34.5 g/dL (31.6-35.5); Mean Corpuscular Hemoglobin 32.6 pg (28.0-33.3); Mean Corpuscular Volume 94.3 fL (83.0-100.0); Mean Platelet Volume 10.3 fL (9.4-12.4); Monocytes # 0.9 K/mcL (0.0-1.3); Monocytes % 7.8 %; Neutrophils # 7.3 K/mcL (1.6-8.9); Platelet Count 159 K/mcL (140-400); Red Blood Count 4.36 M/mcL (4.19-5.50); Red Cell Distribution Width 13.8 % (11.5-14.5); Segmented Neutrophils % 61.6 %
[2018-02-02 06:34] LABS: Calcium 9.9 mg/dL (8.6-10.3); Potassium 4.3 mEq/L (3.5-5.1)
[2018-02-02] MEDS ORDERED: FISH OIL 1000 MG PO SCH (09:00)
[2018-02-02] MEDS ORDERED: Valsartan 160 MG TABLET PO SCH (09:00)
[2018-02-02] MEDS ORDERED: Cholecalciferol (D-3) 1,000 UNIT TABLET PO SCH (09:00)
[2018-02-02] MEDS ORDERED: Isosorbide MONOnitrate (24 HR) 60 MG TAB.ER.24H PO SCH (09:00)
[2018-02-02] MEDS ORDERED: Aspirin 81 MG TAB.CHEW PO SCH (09:00)
[2018-02-02] MEDS: Insulin LISPRO 300 UNITS/3 ML VIAL SQ SCH ×3 (09:21→16:55)
[2018-02-02] MEDS ORDERED: *HR* Enoxaparin 40 MG/0.4 ML SYRINGE SQ SCH (12:30)
[2018-02-02] MEDS ORDERED: *HR* OxyCODONE/APAP 5/325 TABLET PO PRN (14:33)
[2018-02-02 19:32] VITALS: BP 131/82
--- NOTE | 2018-02-02 20:01 | Discharge Summary ---
- NOTES TO OUTPATIENT PROVIDER Notes to Outpatient Provider: Follow up with PCP in 2-3 days after discharge. Recheck BMP at that time to monitor renal function. Follow up with manager drive in 1-2 weeks after discharge. Discuss ECHO results with manager drive for any new recommendations. Follow up with dowel sticker operator at next scheduled appointment. Orders not resulted at time of discharge: Pending orders 02/03/18 04:00 Basic Metabolic Panel AM 0400 CBC [Complete Blood Count] [HEME] AM 0400 Date of Encounter: 02/02/18 Time of Encounter: 19:59 - Discharge Diagnosis (1) CKD (chronic kidney disease) stage 1, GFR 90 ml/min or greater Priority: Secondary Status: Chronic (2) CAD (coronary artery disease) Priority: Secondary Status: Chronic Qualifiers: Coronary Disease-Associated Artery/Lesion type: bypass graft [place] vs. transplanted heart: [place] heart Associated angina: with stable angina Qualified Code(s): I25.708 - Atherosclerosis of coronary artery bypass graft(s) , unspecified, with other forms of angina pectoris (3) CHF (congestive heart failure) Priority: Secondary Status: Chronic Qualifiers: Heart failure type: combined systolic and diastolic Heart failure chronicity: chronic Qualified Code(s): I50.42 - Chronic combined systolic ( congestive) and diastolic (congestive) heart failure (4) COPD (chronic obstructive pulmonary disease) Priority: Secondary Status: Chronic Qualifiers: COPD type: emphysema Emphysema type: unspecified Qualified Code(s): J43.9 - Emphysema, unspecified (5) DVT prophylaxis Priority: Secondary Status: Acute (6) Diabetes mellitus Priority: Secondary Status: Chronic Qualifiers: Diabetes mellitus type: type 2 Diabetes mellitus longterm insulin use: without longterm use Diabetes mellitus complication status: with kidney complications Diabetes mellitus complication detail: with chronic kidney disease Chronic kidney disease stage: stage 3 (moderate) Qualified Code(s): E11.22 - Type 2 diabetes mellitus with diabetic chronic kidney disease; N18.3 - Chronic kidney disease, stage 3 (moderate); N18.3 - Chronic kidney disease, stage 3 (moderate) (7) Shortness of breath Priority: Primary Status: Resolved (8) PAD (peripheral artery disease) Priority: Secondary Status: Chronic (9) Chest pain Priority: Secondary Status: Resolved Qualifiers: Chest pain type: other chest pain Qualified Code(s): R07.89 - Other chest pain; R07.8 - Other chest pain Hospital course: Mr. Graves is a 72 year old male admitted for shortness of breath. He was admitted to general medical floor with telemetry. Flu swab was negative. Cardiac enzymes trended negative; no chest pain since admission. Since he had R > L LE edema, RLE U/S was obtained. It showed no VTE. He has history of COPD , but steroids were not ordered because he exhibited no wheezing and did not clinically look to be in exacerbation. He was started on scheduled duonebs and supplemental O2 PRN, and respiratory status normalized overnight. He was weaned to RA. No further SOB. He has history of CHF, but was euvolemia. BNP was WNL. ECHO showed LVEF of 40-45% with mild LV diastolic dysfunction, normal LV chamber size and wall thickness, and mild LV diastolic dysfunction. Renal function worsened slightly from admission, but was at baseline for his stage I CKD. He will follow up with PCP in 2-3 days after discharge. BMP can be checked at that time to monitor renal function. He will resume all home medications. He will follow up with manager drive in 1-2 weeks after discharge; ECHO can be discussed with recommendations at that time. He will follow up with his dowel sticker operator as scheduled. Patient has met maximum benefit of this hopsitalization and will be discharged home in stable condition. Discharge discussed with: patient, family, nurse, case management, other ( Pharmacist) - Time Spent with Patient Total time spent providing and/or coordinating discharge services: Greater than 30 minutes - Discharge Medications Home Medications: Albuterol Sulfate [Albuterol Inhaler] 2 puff IH Q6H PRN 06/23/15 [History] Aspirin 81 mg PO DAILY 06/23/15 [History] Prasugrel [Effient] 10 mg PO DAILY 06/23/15 [History] Cholecalciferol (D-3) [Vitamin D] 4,000 unit PO DAILY 11/01/16 [History] Furosemide [Lasix] 40 - 80 mg PO DAILY PRN 11/01/16 [History] Gabapentin [Neurontin] 800 mg PO QID 11/01/16 [History] Isosorbide MONOnitrate [Isosorbide Mononitrate ER] 120 mg PO DAILY 11/01/16 [ History] Metoprolol XL (24 HR) Succ [Toprol Xl] 50 mg PO HS 11/01/16 [History] Nitroglycerin [Nitrolingual] 1 - 2 spray SL AD PRN 11/01/16 [History] Valsartan [Diovan] 160 mg PO DAILY 11/01/16 [History] Calcium Polycarbophil [Fibercon] 625 mg PO QID PRN 02/14/17 [History] Oxycodone HCl/Acetaminophen [Percocet 5-325 mg Tablet] 1 tab PO Q6H PRN [History] hydrOXYzine HCl [Hydroxyzine HCl] 25 mg PO TID PRN 02/14/17 [History] Docusate [Colace] 100 mg PO DAILY 02/01/18 [History] Methocarbamol [Robaxin] 500 mg PO QID PRN 02/01/18 [History] [place]-3/Dha/Epa/Fish Oil [Fish Oil 1,000 mg Softgel] 1,000 mg PO DAILY 02/01/18 [History] glipiZIDE [Glucotrol] 2.5 mg PO BIDWM 02/01/18 [History] Allergies/Adverse Reactions: 3 Allergy/AdvReac Type Severity Reaction Status Date / Time clopidogrel [From Plavix] Allergy Mild Rash Verified 02/01/18 16:42 Hlihgbv-Ugi-Pwd Reductase Allergy Mild Hives Verified 02/01/18 16:42 Inhibitor [Statins] zinc Allergy Mild Hives Verified 02/01/18 16:42 gemfibrozil Allergy See Verified 02/01/18 21:59 Comments niacin Allergy See Verified 02/01/18 21:59 Comments pregabalin [From Lyrica] Allergy Hives Verified 02/01/18 16:42 Date of admission: 02/01/18 22:19 Primary care physician: Lisha Crenshaw GRAD INTERN Discharging clinician: Sherwin aCrter Anticipated date of discharge: 02/02/18 - Constitutional Vitals: Temp Pulse Resp BP Pulse Ox 97.8 F 69 17 131/82 96 02/02/18 19:22 02/02/18 19:22 02/02/18 19:22 02/02/18 19:22 02/02/18 19:22 General appearance: Present: cooperative, A&O X 3, pleasant, no acute distress, answers questions appropriately - Respiratory Respiratory exam: Present: CTAB. Absent: accessory muscle use, rales, rhonchi, wheezes Additional comments: Normal WOB - Cardiovascular Cardiovascular exam: Present: RRR, +S1, +S2. Absent: diastolic murmur, gallop, rubs, systolic murmur Additional comments: Trace R > L LE edema - GI/Abdominal GI/Abdominal exam: Present: normal bowel sounds, soft. Absent: distended, hepatomegaly, mass, splenomegaly, tenderness - Psychiatric Psychiatric exam: Present: normal affect, normal mood. Absent: anxious, depressed - Skin Skin exam: Present: dry, intact, warm. Absent: cyanosis, rash - Patient Status Disposition: Home, Self-Care Condition: Good Functional capacity at discharge: independent ambulation Overall status at discharge: patient is back to baseline - Discharge Instructions Follow Up With: Lisha Crenshaw CNP [Primary Care Provider] - Additional Instructions: Follow up with PCP in 2-3 days after discharge. Recheck BMP at that time to monitor renal function. Follow up with manager drive in 1-2 weeks after discharge. Discuss ECHO results with manager drive for any new recommendations. Follow up with dowel sticker operator at next scheduled appointment. - Diet and Activity Activity: resume usual activities as tolerated Diet: advance to your usual diet, diabetic diet, low salt diet, other (Cardiac, Renal)
[2018-02-02] MEDS ORDERED: Insulin LISPRO 300 UNITS/3 ML VIAL SQ SCH (21:00)
--- NOTE | 2018-02-06 21:20 | Electrocardiograph Report ---
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
== END 2018-02-02 20:34 | disposition home or self-care (01) ==
LOC: EMEROO 16:30 → 2NENU 16:30
PROVIDERS: ADMIT Family Medicine; ATTEND Family Medicine

== ENCOUNTER 2020-01-29 03:46 | Inpatient (IN) ==
[2020-01-29] MEDS ORDERED: Ondansetron 4 MG/2 ML VIAL IVP ONE (04:08)
[2020-01-29 04:23] LABS: Hematocrit 43.7 % (37.5-50.1); Hemoglobin 14.8 g/dL (12.9-16.9); Mean Corpuscular HGB Conc 33.9 g/dL (31.6-35.5); Mean Corpuscular Hemoglobin 31.8 pg (28.0-33.3); Mean Platelet Volume 10.2 fL (9.4-12.4); Platelet Count 213 K/mcL (140-400); Red Blood Count 4.65 M/mcL (4.19-5.50); Red Cell Distribution Width 12.7 % (11.5-14.5); White Blood Count 12.1 K/mcL (4.3-11.1)
[2020-01-29] MEDS ORDERED: Isovue-370 500 ML BOTTLE IVP ONE (04:23)
[2020-01-29 04:24] LABS: Prothrombin Time 11.3 Seconds (9.4-12.1)
[2020-01-29 04:27] LABS: Activated Partial Thrombo Time 31.7 Seconds (26.0-36.0)
[2020-01-29 04:41] LABS: BUN/Creatinine Ratio 15 (6-26); Blood Urea Nitrogen 30 mg/dL (8-23); Calcium 9.5 mg/dL (8.6-10.3); Carbon Dioxide 27 mEq/L (23-29); Chloride 102 mEq/L (98-107); Glucose 180 mg/dL (70-105); Osmolality,Calculated 293 (280-300); Potassium 3.3 mEq/L (3.5-5.1); Sodium 136 mEq/L (136-145); eGFR For African Americans 40 (> 60); eGFR For Non-African Americans 33 (> 60)
[2020-01-29 04:42] LABS: Troponin I < 0.03 ng/mL (< 0.04)
[2020-01-29] MEDS ORDERED: Naloxone 0.4 MG/ML INJ IVP PRN (05:52)
[2020-01-29] MEDS ORDERED: Dextrose Gel 15 GM/37.5 ML TUBE PO PRN ×2 (05:52)
[2020-01-29] MEDS ORDERED: *HR* Dextrose 50 % in Water (Syg) 50 ML SYRINGE IVP PRN (05:52)
[2020-01-29] MEDS ORDERED: D5% in Water 1,000 ML IVC PRN (05:52)
[2020-01-29] MEDS ORDERED: Pantoprazole 40 MG VIAL IVP SCH (06:00)
[2020-01-29] MEDS ORDERED: Ipratropium/Albuterol Neb 3 ML IH PRN (06:05)
[2020-01-29] MEDS: Ondansetron ODT 4 MG TAB.RAPDIS SL PRN ×2 (06:32→11:36)
[2020-01-29] MEDS: Insulin LISPRO 300 UNITS/3 ML VIAL SQ SCH ×3 (06:43→17:08)
[2020-01-29 06:44] LABS: Hematocrit 42.1 % (37.5-50.1); Hemoglobin 13.7 g/dL (12.9-16.9)
[2020-01-29] MEDS ORDERED: *HR* Promethazine 25 MG/ML VIAL IVP ONE (07:07)
[2020-01-29 07:09] LABS: Chol/HDL Ratio 4.6 (0-4.9); Magnesium 2.2 mg/dL (1.6-2.6); Phosphorous 3.9 mg/dL (2.7-4.5)
[2020-01-29] MEDS ORDERED: Nicotine 14 MG PATCH.TD24 TD SCH (09:00)
[2020-01-29 09:37] LABS: Estimated Average Glucose 206 mg/dl
[2020-01-29] MEDS ORDERED: Aspirin 81 MG TAB.CHEW PO SCH (10:00)
[2020-01-29 10:42] LABS: Bilirubin,Urine Negative (Negative); Blood,Urine Negative (Negative); Clarity,Urine Clear (Clear); Color,Urine Yellow (Yellow); Glucose,Urine (UA) 500 mg/dL (Normal); Ketones,Urine Negative (Negative); Leukocyte Esterase,Urine Negative (Negative); Nitrite,Urine Negative (Negative); Protein,Urine 100 mg/dL (Neg-Trace); Specific Gravity,Urine 1.024 (1.010-1.025); Urobilinogen,Urine Normal (Normal)
[2020-01-29 10:44] LABS: Bacteria,Urine None Seen per hpf (None-Few); Hyaline Casts,Urine None Seen per lpf (None-Few); RBC,Urine 0-3 per hpf (0-3); Squamous Epithelial Cell,Urine Moderate per lpf (None-Few); WBC,Urine 0-3 per hpf (0-3)
[2020-01-29] MEDS ORDERED: 0.9 % Sodium Chloride 1,000 ML ONE (11:35)
[2020-01-29] MEDS ORDERED: *HR* Heparin 5,000 UNIT/ML VIAL IVP PRN ×2 (11:35)
[2020-01-29] MEDS ORDERED: Heparin 25,000 UNIT/250 ML D5W 25,000 UNIT/250 ML IV.SOLN IVC SCH (11:45)
[2020-01-29 12:44] LABS: Hematocrit 43.7 % (37.5-50.1); Hemoglobin 14.4 g/dL (12.9-16.9); Mean Corpuscular Volume 94.2 fL (83.0-100.0); Mean Platelet Volume 10.5 fL (9.4-12.4); Platelet Count 185 K/mcL (140-400); Red Blood Count 4.64 M/mcL (4.19-5.50); Red Cell Distribution Width 12.6 % (11.5-14.5); White Blood Count 11.2 K/mcL (4.3-11.1)
[2020-01-29 12:45] LABS: Hematocrit 43.4 % (37.5-50.1); Hemoglobin 14.3 g/dL (12.9-16.9)
[2020-01-29 12:50] LABS: Heparin anti-factor XA UFH < 0.04 IU/mL (0.30-0.70); Prothrombin Time 11.9 Seconds (9.4-12.1)
[2020-01-29 16:42] VITALS: BP 163/74
== END 2020-01-29 18:09 | disposition critical access hospital (66) | DRG 65 ==
LOC: 3BNU 03:46 → EMEROOARM 03:46 → SUATTDRO 05:34 → 3BNU 06:00
PROVIDERS: ADMIT Student in an Organized Health Care Education/Training Program; ATTEND Internal Medicine

== ENCOUNTER 2021-07-20 06:06 | Inpatient (IN) ==
[2021-07-20] MEDS ORDERED: CeFAZolin Syr 2,000MG/20 ML 2,000 MG/20 ML SYRINGE IVPB ONE (06:19)
[2021-07-20] MEDS ORDERED: Heparin 1,000 UNITS/500 mL 1,000 ML ONE (06:30)
[2021-07-20] MEDS ORDERED: Ringers Solution, Lactated 1,000 ML IVC SCH (06:30)
[2021-07-20] MEDS ORDERED: Protamine Sulfate 50 MG/5 ML VIAL IVP ONE (06:31)
[2021-07-20] MEDS ORDERED: 0.9 % Sodium Chloride 500 ML IVC SCH (07:15)
[2021-07-20] MEDS ORDERED: *HR* Rocuronium Bromide 50 MG/5 ML VIAL ONE ×2 (07:19→08:52)
[2021-07-20] MEDS ORDERED: *HR* Succinylcholine 200 MG/10 ML VIAL IVP ONE (07:19)
[2021-07-20] MEDS ORDERED: Lidocaine -MPF 2% 2 ML VIAL ONE ×2 (07:19→09:51)
[2021-07-20] MEDS ORDERED: Ondansetron 4 MG/2 ML VIAL ONE (07:19)
[2021-07-20] MEDS ORDERED: *HR* Magnesium Sulfate 1 GM/2 ML VIAL ONE ×2 (07:23→13:47)
[2021-07-20] MEDS ORDERED: *HR* Heparin 5,000 UNIT/ML VIAL ONE ×4 (07:23→13:50)
[2021-07-20] MEDS ORDERED: *HR* Etomidate 40 MG/20 ML VIAL IVP ONE (07:23)
[2021-07-20] MEDS ORDERED: *HR* Propofol 200 MG/20 ML VIAL IVP ONE (07:24)
[2021-07-20] MEDS ORDERED: *HR* Midazolam HCl 2 MG/2 ML VIAL ONE (07:27)
[2021-07-20] MEDS ORDERED: *HR* FentaNYL (PF) 100 MCG/2 ML VIAL ONE (07:27)
[2021-07-20] MEDS ORDERED: *HR* Norepinephrine 4 MG/4 ML VIAL IVC ONE (07:30)
[2021-07-20] MEDS ORDERED: Albumin Human 5% 0 GM/0 ML IV.SOLN ONE (07:30)
[2021-07-20] MEDS ORDERED: *HR* Vasopressin 20 UNIT/ML VIAL ONE (07:30)
[2021-07-20] MEDS ORDERED: *HR* HYDROmorphone PF 0.5 MG/0.5 ML SYRINGE IVP PRN (07:41)
[2021-07-20] MEDS ORDERED: Ondansetron 4 MG/2 ML VIAL IVP PRN ×2 (07:41→13:43)
[2021-07-20] MEDS ORDERED: *HR* OxyCODONE Immed Rel 5 MG TABLET PO PRN ×2 (07:41→13:43)
[2021-07-20] MEDS ORDERED: EPHEDrine 50 MG/ML VIAL ONE (07:43)
[2021-07-20] MEDS ORDERED: ceFAZolin 1,000 MG, Sodium Chloride IRRigation 1,000 ML IR ONE (07:45)
[2021-07-20] MEDS ORDERED: Naloxone 0.4 MG/ML INJ IVP PRN (13:43)
[2021-07-20] MEDS ORDERED: Nitroglycerin Spray 4.9 GM BOTTLE SL PRN (13:43)
[2021-07-20] MEDS ORDERED: Acetaminophen 325 MG TABLET PO PRN (13:43)
[2021-07-20] MEDS ORDERED: *HR* OxyCODONE/APAP 7.5/325 TABLET PO PRN (13:43)
[2021-07-20] MEDS ORDERED: *HR* Labetalol 20 MG/4 ML SYRINGE IVP PRN (13:43)
[2021-07-20] MEDS: CeFAZolin 2 GM/120 ML BAG IVPB SCH (16:08)
[2021-07-20] MEDS: *HR* GlipiZIDE XL (24 HR) 2.5 MG TABLET PO SCH (18:52)
[2021-07-20] MEDS ORDERED: Metoprolol XL (24 HR) Succ 50 MG TAB.ER.24H PO SCH (21:00)
[2021-07-21] MEDS: CeFAZolin 2 GM/120 ML BAG IVPB SCH ×2 (00:13→07:36)
[2021-07-21 02:56] LABS: Basophils % 0.1 %; Hematocrit 37.9 % (37.5-50.1); Hemoglobin 12.2 g/dL (12.9-16.9); Immature Granulocytes % 0.4 % (0-4); Lymphocytes # 1.1 K/mcL (0.6-4.6); Mean Corpuscular HGB Conc 32.2 g/dL (31.6-35.5); Mean Corpuscular Hemoglobin 30.5 pg (28.0-33.3); Mean Corpuscular Volume 94.8 fL (83.0-100.0); Mean Platelet Volume 11.5 fL (9.4-12.4); Monocytes % 6.8 %; Neutrophils # 11.9 K/mcL (1.6-8.9); Platelet Count 146 K/mcL (140-400); Red Cell Distribution Width 13.3 % (11.5-14.5); Segmented Neutrophils % 84.7 %
[2021-07-21 03:04] LABS: Calcium 8.5 mg/dL (8.6-10.3); Potassium 5.1 mEq/L (3.5-5.1)
[2021-07-21 07:15] VITALS: TEMP 98.1; O2SAT 100
[2021-07-21] MEDS: *HR* GlipiZIDE XL (24 HR) 2.5 MG TABLET PO SCH (07:37)
[2021-07-21 07:41] VITALS: BP 156/65; PULSE 57
[2021-07-21] MEDS ORDERED: Fenofibrate 54 MG TABLET PO SCH (09:00)
[2021-07-21] MEDS ORDERED: Furosemide 40 MG TABLET PO SCH (09:00)
[2021-07-21] MEDS ORDERED: Ezetimibe [Zetia] 10 MG Tablet PO SCH (09:00)
[2021-07-21] MEDS ORDERED: Isosorbide MONOnitrate (24 HR) 60 MG TAB.ER.24H PO SCH (09:00)
[2021-07-21] MEDS ORDERED: Cholecalciferol (D-3) 1,000 UNIT (25MCG) TABLET PO SCH (09:00)
[2021-07-21] MEDS ORDERED: Aspirin Enteric Coated 325 MG Tablet PO SCH (09:00)
== END 2021-07-21 11:03 | disposition home or self-care (01) | DRG 38 ==
LOC: SAMDAY 06:06 → 2NNU 13:40
PROVIDERS: ADMIT Surgery Vascular Surgery; ATTEND Surgery Vascular Surgery

== ENCOUNTER 2022-07-06 22:51 | Inpatient (IN) ==
[2022-07-06] MEDS ORDERED: Iopamidol - 370 500 ML MLS IVP ONE (23:40)
[2022-07-06] MEDS ORDERED: Nitroglycerin 0.4 MG TAB.SUBL SL ONE (23:41)
[2022-07-07 00:25] LABS: Basophils # 0.1 K/mcL (0.0-0.2); Basophils % 0.9 %; Eosinophils # 0.3 K/mcL (0.0-0.6); Eosinophils % 3.5 %; Hematocrit 38.8 % (37.5-50.1); Hemoglobin 12.9 g/dL (12.9-16.9); Immature Granulocytes % 0.4 % (0-4); Lymphocytes # 1.4 K/mcL (0.6-4.6); Lymphocytes % 15.8 %; Mean Corpuscular HGB Conc 33.2 g/dL (31.6-35.5); Mean Corpuscular Hemoglobin 31.5 pg (28.0-33.3); Mean Corpuscular Volume 94.9 fL (83.0-100.0); Mean Platelet Volume 11.6 fL (9.4-12.4); Monocytes # 0.6 K/mcL (0.0-1.3); Monocytes % 6.2 %; Neutrophils # 6.7 K/mcL (1.6-8.9); Platelet Count 188 K/mcL (140-400); Red Blood Count 4.09 M/mcL (4.19-5.50); Segmented Neutrophils % 73.2 %; White Blood Count 9.1 K/mcL (4.3-11.1)
[2022-07-07 00:45] LABS: BUN/Creatinine Ratio 11 (6-26); Blood Urea Nitrogen 43 mg/dL (8-23); Calcium 8.9 mg/dL (8.6-10.3); Carbon Dioxide 24 mEq/L (23-29); Chloride 99 mEq/L (98-107); Glucose 252 mg/dL (70-105); Osmolality,Calculated 297 (280-300); Potassium 3.4 mEq/L (3.5-5.1); Sodium 134 mEq/L (136-145)
[2022-07-07 00:47] LABS: Troponin I < 0.03 ng/mL (< 0.04)
[2022-07-07 01:23] LABS: Magnesium 1.8 mg/dL (1.6-2.6); Phosphorous 4.4 mg/dL (2.7-4.5)
[2022-07-07] MEDS ORDERED: Acetaminophen 325 MG TABLET PO PRN (03:37)
[2022-07-07] MEDS ORDERED: *HR* HYDROcodone/Acet 5/325 mg TABLET PO PRN (03:37)
[2022-07-07] MEDS ORDERED: Naloxone 0.4 MG/ML INJ IVP PRN (03:37)
[2022-07-07] MEDS ORDERED: *HR* OxyCODONE Immed Rel 5 MG TABLET PO PRN (03:37)
[2022-07-07] MEDS ORDERED: Ondansetron ODT 4 MG TAB.RAPDIS SL PRN (03:37)
[2022-07-07] MEDS ORDERED: Melatonin 3 MG TABLET PO PRN (03:37)
[2022-07-07] MEDS ORDERED: D5% in Water 1,000 ML IVC PRN (04:13)
[2022-07-07] MEDS ORDERED: *HR* Dextrose 50 % in Water (Syg) 50 ML SYRINGE IVP PRN (04:13)
[2022-07-07] MEDS ORDERED: Dextrose Gel 15 GM/37.5 ML TUBE PO PRN ×2 (04:13)
[2022-07-07] MEDS ORDERED: Nitroglycerin 0.4 MG TAB.SUBL SL PRN (04:24)
[2022-07-07 05:45] LABS: Hematocrit 35.6 % (37.5-50.1); Hemoglobin 11.6 g/dL (12.9-16.9); Mean Corpuscular HGB Conc 32.6 g/dL (31.6-35.5); Mean Corpuscular Hemoglobin 31.3 pg (28.0-33.3); Mean Platelet Volume 11.1 fL (9.4-12.4); Platelet Count 175 K/mcL (140-400); Red Blood Count 3.71 M/mcL (4.19-5.50); Red Cell Distribution Width 13.1 % (11.5-14.5); White Blood Count 8.5 K/mcL (4.3-11.1)
[2022-07-07] MEDS ORDERED: *HR* Heparin 5,000 UNIT/ML VIAL IVP PRN (06:10)
[2022-07-07] MEDS ORDERED: *HR* Heparin 5,000 UNIT/ML VIAL IVP ONE (06:10)
[2022-07-07] MEDS ORDERED: Regadenoson 0.4 MG/5 ML SYRINGE IVP ONE (06:29)
[2022-07-07] MEDS: Heparin 25,000UNIT/250ML 1/2NS 25,000 UNIT/250 ML IV.SOLN IVC SCH (06:41)
[2022-07-07 06:48] LABS: Hematocrit 34.4 % (37.5-50.1); Mean Corpuscular HGB Conc 32.6 g/dL (31.6-35.5); Mean Corpuscular Hemoglobin 31.3 pg (28.0-33.3); Mean Corpuscular Volume 96.1 fL (83.0-100.0); Mean Platelet Volume 10.9 fL (9.4-12.4); Platelet Count 169 K/mcL (140-400); Red Blood Count 3.58 M/mcL (4.19-5.50); White Blood Count 8.2 K/mcL (4.3-11.1)
[2022-07-07 06:49] LABS: Hemoglobin 11.2 g/dL (12.9-16.9)
[2022-07-07 06:53] LABS: Calcium 8.7 mg/dL (8.6-10.3); Chol/HDL Ratio 3.6 (0-4.9); Magnesium 2.2 mg/dL (1.6-2.6); Phosphorous 5.6 mg/dL (2.7-4.5); Potassium 3.3 mEq/L (3.5-5.1)
[2022-07-07 06:55] LABS: Heparin anti-factor XA UFH < 0.04 IU/mL (0.30-0.70)
[2022-07-07 06:56] LABS: INR 1.1
[2022-07-07] MEDS: Aspirin 81 MG TAB.CHEW PO SCH (08:48)
[2022-07-07 10:39] LABS: Estimated Average Glucose 157 mg/dl; Hemoglobin A1C 7.1 %
[2022-07-07] MEDS ORDERED: *HR* Heparin 10,000 UNIT/10 ML VIAL IV PRN (11:48)
[2022-07-07] MEDS ORDERED: 0.9 % Sodium Chloride 250 ML IVC PRN (11:48)
[2022-07-07] MEDS ORDERED: Albumin 25% 25gram/100mL 25 GM/100 ML IV.SOLN IVPB PRN (11:48)
[2022-07-07] MEDS ORDERED: 0.9 % Sodium Chloride 2,000 ML PRIME SCH (12:00)
[2022-07-07 15:28] LABS: Hepatitis B Surface Antibody < 3.10 mIU/mL
[2022-07-07 15:38] LABS: Hepatitis B Surface Antigen Nonreactive (Nonreactive)
[2022-07-07] MEDS: *HR* Heparin 5,000 UNIT/ML VIAL IVP PRN ×2 (15:45→23:01)
[2022-07-07] MEDS ORDERED: Calcium Acetate 667 MG CAPSULE PO SCH (17:00)
[2022-07-07] MEDS: Ezetimibe [Zetia] 10 MG Tablet PO SCH (18:41)
[2022-07-07] MEDS: Isosorbide MONOnitrate (24 HR) 60 MG TAB.ER.24H PO SCH (19:40)
[2022-07-07] MEDS: Cholecalciferol (D-3) 1,000 UNIT (25MCG) TABLET PO SCH (19:41)
[2022-07-08] MEDS: Heparin 25,000UNIT/250ML 1/2NS 25,000 UNIT/250 ML IV.SOLN IVC SCH (04:37)
[2022-07-08 05:19] LABS: Basophils # 0.1 K/mcL (0.0-0.2); Basophils % 1.1 %; Eosinophils # 0.4 K/mcL (0.0-0.6); Eosinophils % 5.7 %; Hematocrit 37.1 % (37.5-50.1); Hemoglobin 11.9 g/dL (12.9-16.9); Immature Granulocytes % 0.4 % (0-4); Lymphocytes # 1.4 K/mcL (0.6-4.6); Lymphocytes % 18.6 %; Mean Corpuscular HGB Conc 32.1 g/dL (31.6-35.5); Mean Corpuscular Hemoglobin 30.3 pg (28.0-33.3); Mean Corpuscular Volume 94.4 fL (83.0-100.0); Mean Platelet Volume 11.5 fL (9.4-12.4); Monocytes # 0.6 K/mcL (0.0-1.3); Monocytes % 8.4 %; Neutrophils # 4.9 K/mcL (1.6-8.9); Platelet Count 159 K/mcL (140-400); Red Blood Count 3.93 M/mcL (4.19-5.50); Segmented Neutrophils % 65.8 %; White Blood Count 7.4 K/mcL (4.3-11.1)
[2022-07-08 05:30] LABS: Calcium 8.5 mg/dL (8.6-10.3); Magnesium 1.9 mg/dL (1.6-2.6); Phosphorous 3.4 mg/dL (2.7-4.5); Potassium 3.8 mEq/L (3.5-5.1)
[2022-07-08] MEDS: Aspirin 81 MG TAB.CHEW PO SCH (08:20)
[2022-07-08] MEDS: Metoprolol XL (24 HR) Succ 50 MG TAB.ER.24H PO SCH (08:21)
[2022-07-08] MEDS: Cholecalciferol (D-3) 1,000 UNIT (25MCG) TABLET PO SCH ×2 (08:21→20:41)
[2022-07-08] MEDS: Isosorbide MONOnitrate (24 HR) 60 MG TAB.ER.24H PO SCH (08:26)
[2022-07-08] MEDS: Fenofibrate 54 MG TABLET PO SCH (08:26)
[2022-07-08] MEDS ORDERED: Heparin 1,000 UNITS/500 mL 500 ML ONE ×2 (09:38→14:50)
[2022-07-08] MEDS ORDERED: *HR* Heparin 5,000 UNIT/ML VIAL ONE (09:58)
[2022-07-08] MEDS ORDERED: Iopamidol - 370 200 ML INFUS..BTL ONE (14:50)
[2022-07-08] MEDS ORDERED: Nitroglycerin 1,000 MCG/5 ML VIAL IV ONE (14:50)
[2022-07-08] MEDS ORDERED: 0.9 % Sodium Chloride 2,000 ML ONE (14:50)
[2022-07-08] MEDS ORDERED: *HR* Heparin 10,000 UNIT/10 ML VIAL ONE (14:50)
[2022-07-08] MEDS ORDERED: *HR* FentaNYL (PF) 100 MCG/2 ML VIAL ONE (14:56)
[2022-07-08] MEDS ORDERED: *HR* Midazolam HCl 2 MG/2 ML VIAL ONE ×2 (14:56→15:26)
[2022-07-08] MEDS ORDERED: Melatonin 3 MG TABLET PO PRN (16:01)
[2022-07-08] MEDS: Ezetimibe [Zetia] 10 MG Tablet PO SCH (17:50)
[2022-07-09 06:39] LABS: Basophils # 0.1 K/mcL (0.0-0.2); Basophils % 0.9 %; Eosinophils # 0.4 K/mcL (0.0-0.6); Eosinophils % 4.6 %; Hematocrit 36.5 % (37.5-50.1); Hemoglobin 11.7 g/dL (12.9-16.9); Immature Granulocytes % 0.5 % (0-4); Lymphocytes # 1.5 K/mcL (0.6-4.6); Lymphocytes % 17.9 %; Mean Corpuscular HGB Conc 32.1 g/dL (31.6-35.5); Mean Corpuscular Hemoglobin 30.8 pg (28.0-33.3); Mean Corpuscular Volume 96.1 fL (83.0-100.0); Monocytes # 0.7 K/mcL (0.0-1.3); Monocytes % 8.4 %; Neutrophils # 5.7 K/mcL (1.6-8.9); Platelet Count 150 K/mcL (140-400); Segmented Neutrophils % 67.7 %; White Blood Count 8.4 K/mcL (4.3-11.1)
[2022-07-09 06:57] LABS: Calcium 8.9 mg/dL (8.6-10.3); Potassium 4.1 mEq/L (3.5-5.1)
[2022-07-09] MEDS ORDERED: 0.9 % Sodium Chloride 250 ML IVC PRN (08:40)
[2022-07-09] MEDS ORDERED: *HR* Heparin 10,000 UNIT/10 ML VIAL IV PRN (08:45)
[2022-07-09] MEDS: Fenofibrate 54 MG TABLET PO SCH (09:14)
[2022-07-09] MEDS: Metoprolol XL (24 HR) Succ 50 MG TAB.ER.24H PO SCH (09:14)
[2022-07-09] MEDS: Aspirin 81 MG TAB.CHEW PO SCH (09:14)
[2022-07-09] MEDS: Cholecalciferol (D-3) 1,000 UNIT (25MCG) TABLET PO SCH (09:15)
[2022-07-09] MEDS: Isosorbide MONOnitrate (24 HR) 60 MG TAB.ER.24H PO SCH (09:15)
[2022-07-09 09:19] VITALS: PULSE 66; O2SAT 98
[2022-07-09 13:23] VITALS: BP 138/77; TEMP 98.1
== END 2022-07-09 13:25 | disposition home or self-care (01) | DRG 280 ==
LOC: 3NENU 22:51 → EMEROOARM 22:51 → SUATTDRO 07-07 03:43 → 3NENU 07-07 04:25
PROVIDERS: ADMIT Internal Medicine; ATTEND Nurse Practitioner